=== PATIENT | male | born 1955 | race Caucasian/White ===

== ENCOUNTER → 2023-01-16 | Outpatient (CLI) | payer BC, MEDICARE | END | disposition home or self-care (01) | LOC: LABWHC1 10:23 | PROVIDERS: ATTEND Orthopaedic Surgery | DX: Z53.9 Procedure and treatment not carried out, unspecified reason (principal) ==

== ENCOUNTER → 2023-02-28 | Outpatient (CLI) | payer BC ==
--- NOTE | 2023-02-28 15:06 | US ---
EXAMINATION TYPE: US venous doppler duplex LE BI DATE OF EXAM: 02/28/2023 2:15 PM COMPARISON: NONE CLINICAL INDICATION: Male, 67 years old with history of T81.3; SIDE PERFORMED: Bilateral TECHNIQUE: The lower extremity deep venous system is examined utilizing real time linear array sonog lorena with graded compression, doppler sonography and color-flow sonography. VESSELS IMAGED: Common Femoral Vein Deep Femoral Vein Greater Saphenous Vein * Femoral Vein Popliteal Vein Small Saphenous Vein * Proximal Calf Veins (* superficial vessels) Right Leg: Appears negative for DVT Left Leg: Appears negative for DVT Grayscale, color doppler, spectral doppler imaging performed of the deep veins of the bilateral lower extremities. There is normal flow, compressibility, vascular waveforms. IMPRESSION: No ultrasound evidence for acute DVT in either lower extremity.
--- NOTE | 2023-02-28 15:07 | US ---
EXAMINATION TYPE: US arterial LE single level DATE OF EXAM: 02/28/2023 2:48 PM CLINICAL INDICATION: Male, 67 years old with history of T81.31XA; Non healing wound left lateral ankl e History of: Smoker: no Hypertension: yes Diabetic: no Hyperlipidemia: no TIA/CVA: no Previous Vascular Surgery: no CAD: no [place]: no Doppler Waveforms: Right: Multiphasic Left: Biphasic Pulse Volume Recording: Pressure Gradients: Right Brachial Pressure: 107 Left Brachial Pressure: 118 Ankle-Brachial Indices: Right: 1.29 Left: 1.26 Toe Brachial Indices: Right: 0.87 Left: 0.84 IMPRESSION: Normal study
== END | disposition home or self-care (01) ==
LOC: RADUSWWP 13:20
PROVIDERS: ATTEND Family Medicine
DX: L97.822 Non-pressure chronic ulcer of other part of left lower leg with fat layer exposed (principal); T81.31XA Disruption of external operation (surgical) wound, not elsewhere classified, initial encounter; S82.202S Unspecified fracture of shaft of left tibia, sequela; I10 Essential (primary) hypertension
CPT/HCPCS: 93922; 93970

== ENCOUNTER 2024-12-28 10:44 | Day surgery (SDC) | payer MEDICARE ==
[2024-12-24 11:57] VITALS: BMI 31.0
[~2024-12-28 10:44] MED LIST: LIDOCAINE 1% (10MG/ML) FOR IV START INTRADERMA PRN
[2024-12-28 12:06] VITALS: RESP 16; TEMP 97.4
[2024-12-28] MEDS: LACTATED RINGERS 1,000 ML IV SCH (12:06)
[2024-12-28] MEDS: IV FLUID CONTINUATION 1,000 ML IV ONE (12:06)
[2024-12-28] MEDS ORDERED: PROPOFOL 10 MG/ML 20 ML VIAL IV ONE (12:30)
--- NOTE | 2024-12-28 12:47 | P.PCN ---
Date of Procedure: 12/28/24 Procedure(s) Performed: BRIEF HISTORY: Patient is a 69-year-old pleasant white male scheduled for an elective colonoscopy as a part of screening for colon cancer/positive Cologuard PROCEDURE PERFORMED: Colonoscopy with snare polypectomy. PREOPERATIVE DIAGNOSIS: Screening for colon cancer/positive Cologuard. IV sedation per Anesthesia. PROCEDURE: After informed consent was obtained, the patient, was brought into the endoscopy unit. IV sedation was administered by Anesthesia under continuous monitoring. Digital rectal examination was normal. Initially the Olympus CF-160 flexible video colonoscope was then inserted in the rectum, gradually advanced into the cecum without any difficulty. Careful examination was performed as the scope was gradually being withdrawn. Ileocecal valve and the appendiceal orifice were visualized and appeared normal. Prep was excellent. Mucosa of the cecum appeared normal. Descending colon is a 5 mm and a 2.5 cm polyp removed by snare polypectomy. Rest of, ascending colon, transverse colon, descending colon, appeared normal. The sigmoid colon is a 5 mm polyp removed by snare polypectomy. Rest of the sigmoid colon, and rectum appeared normal. Retroflexion was performed in the rectum and no lesions were seen. The patient tolerated the procedure well. IMPRESSION: 2.5 cm and 5 mm ascending colon polyp status post polypectomy 5 mm sigmoid colon polyp status post polypectomy RECOMMENDATIONS: Findings of this examination were discussed with the patient as well as his family. He was advised to follow-up with the biopsy results. If the biopsy reveals adenoma he can have repeat colonoscopy in 3 years..
[2024-12-28 13:14] VITALS: BP 132/75; PULSE 73
== END 2024-12-28 13:35 | disposition home or self-care (01) ==
LOC: ORWHC2ENDO 10:44
PROVIDERS: ATTEND Internal Medicine Gastroenterology
DX: Z12.11 Encounter for screening for malignant neoplasm of colon (principal); D12.2 Benign neoplasm of ascending colon; D12.5 Benign neoplasm of sigmoid colon; I10 Essential (primary) hypertension; E78.5 Hyperlipidemia, unspecified; Z88.0 Allergy status to penicillin; Z79.02 Long term (current) use of antithrombotics/antiplatelets; Z79.899 Other long term (current) drug therapy
CPT/HCPCS: 45385; J2704; 88305